=== PATIENT | male | born 1995 ===

== ENCOUNTER 2020-01-19 13:18 | Emergency (ER) | payer OTHER ==
[2020-01-19] MEDS ORDERED: traMADol 50 MG Tab ONE (13:30)
--- NOTE | 2020-01-19 14:20 | ER ---
REASON FOR EMERGENCY ROOM VISIT: Toothache. HISTORY: This 25-year-old man from [place], [place] is here fishing for the weekend. For the past couple of weeks, he has had an increasing problem with a toothache involving a left upper 3rd molar area where he lost a filling and has a partially broken off wisdom tooth. He is scheduled to see his dentist, but not until the of this month. He has not had any fever, but the pain has gotten quite bad over the past couple of days and he would like to receive something. He states that he has taken a lot of ibuprofen and does not seem to give him adequate pain control. PAST MEDICAL HISTORY: Unremarkable. MEDICATIONS: None. ALLERGIES: AMOXICILLIN. PHYSICAL EXAMINATION: HEENT: On direct inspection, I can see a cavity over his left maxillary 3rd molar and he also has what appears to be a broken wisdom tooth on the same side. It is somewhat tender to touch. There is no erythema or swelling of the surrounding gingiva. He has no cervical adenopathy or facial swelling of any kind. IMPRESSION: Toothache. PLAN: Tramadol 50 mg, dispensed #10, 1 p.o. q.4 hours p.r.n. pain. I urged him to get in touch with his dentist's office as soon as he gets back to [place] on Tuesday, so that he can be seen and appropriately treated for this. He understands and agrees with this plan. MARILU /[id number]
== END 2020-01-19 13:40 | disposition home or self-care (01) ==
LOC: LB.ED 13:18
DX: K08.89 Other specified disorders of teeth and supporting structures (principal); Z88.0 Allergy status to penicillin
CPT/HCPCS: 99282; 99283; A9270-GY